=== PATIENT | male | born 1995 | race Caucasian/White ===

== ENCOUNTER 2016-12-12 18:36 | Emergency (ER) | payer BC ==
[~2016-12-12] VITALS: Ht 185.4 cm; Wt 95.0 kg
[~2016-12-12 18:36] MED LIST: ALBU8.5H3; D-ME473S2
[2016-12-12 18:42] VITALS: Ht 185.4 cm; Wt 95.0 kg
[2016-12-12] MEDS ORDERED: IBUPROFEN 800 MG TAB PO ONE (19:00)
--- NOTE | 2016-12-12 19:37 | RADRPT ---
PROCEDURE: XR Left hand CLINICAL INDICATION: Left hand pain status post sports injury. TECHNIQUE: AP, oblique and lateral views of the left hand were obtained. COMPARISON: No prior studies are available for comparison. FINDINGS: Reference marker is directed towards the base of the second finger, without evident underlying radio graphic abnormality. The bones of the hand appear intact, with no evidence of fracture, dislocation, or subluxation. The joint spaces are preserved. Bone mineralization is normal. No significant soft tissue swelling is se en. IMPRESSION: Unremarkable left hand. RPTAT: [facility] Physician Alexander Date Time Electronically viewed and signed by Physician Alexander on 12/12/2016 19:37 RS/
[2016-12-12] MEDS ORDERED: IBUP-1542 PO (19:41)
--- NOTE | 2016-12-12 20:14 | ERD ---
ER Documentation Chief Complaint Date/Time DATE: 12/12/16 TIME: 20:12 Chief Complaint L hand numbness. injured in soccer game. Pt has the symptoms for 1 week HPI Patient is a 21-year-old male with no medical problems who presents with a left hand injury. The patient injured his left hand while playing soccer 10 days ago. He fell onto his left hand and then another player fell on top of it. He now has pain in the lateral portion of his left hand over the thumb and second finger. The patient has numbness over the back of his hand as well. He has had no treatment as of yet. Upon review of old medical records this is the patient's eighth visit to the ER since 2006. He does not know the name of his primary doctor. ROS All systems reviewed and are negative except as per history of present illness. Medications Home Meds Active Scripts Ibuprofen* (Motrin*) 600 Mg Tab, 600 MG PO Q6H Y for PAIN AND OR ELEVATED TEMP, #30 TAB Prov:STEFFEN MA MD 12/12/16 Reported Medications Albuterol Sulfate* (Proair HFA*) 8.5 Gm Hfa.aer.ad 10/29/12 Dextromethorphan Hb-Promethazine Hcl* (Promethazine DM* Syrup) 473 Ml Syrup 10/29/12 Allergies Allergies: Coded Allergies: No Known Drug Allergies (Verified Allergy, Mild, 01/21/15) PMhx/Soc Medical and Surgical Hx: pt denies Medical Hx History of Surgery: No Anesthesia Reaction: No Hx Neurological Disorder: No Hx Respiratory Disorders: No Hx Cardiac Disorders: No Hx Psychiatric Problems: No Hx Miscellaneous Medical Probl: No Hx Alcohol Use: No Hx Substance Use: No Hx Tobacco Use: No Smoking Status: Never smoker FmHx Family History: No diabetes Physical Exam Vitals Vital Signs Date Time Temp Pulse Resp B/P Pulse Ox O2 Delivery O2 Flow Rate FiO2 12/12/16 18:42 99.0 67 20 136/69 97 Physical Exam Const: No acute distress Head: Atraumatic Eyes: Normal Conjunctiva ENT: Normal External Ears, Nose and Mouth. Neck: Full range of motion..~ No meningismus. Resp: Clear to auscultation bilaterally Cardio: Regular rate and rhythm, no murmurs Abd: Soft, non tender, non distended. Normal bowel sounds Skin: No petechiae or rashes Back: No midline or flank tenderness Ext: No deformity or swelling of the left hand noted Neur: Awake and alert, 3 nerve roots of the left upper extremity are intact, patient able to give a thumbs up, okay sign, touch all fingers to thumb, spread fingers, extend and flex fist Psych: Normal Mood and Affect Results 24 hrs Current Medications Medications (Trade) Dose Ordered Sig/Tacho Route PRN Reason Start Time Stop Time Status Last Admin Dose Admin Ibuprofen (Motrin) 800 mg ONCE ONCE PO 12/12/16 19:00 12/12/16 19:01 DC 12/12/16 19:01 Procedures/MDM X-ray of the left hand negative per radiology. Patient is a 21-year-old male presents with a left hand contusion. The patient had an x-ray which shows no fracture or dislocation. At this point all nerve roots appear to be intact. I believe outpatient management is appropriate. I do not believe the patient requires further workup or admission the hospital at this time. The patient will be given ibuprofen in the emergency department and a prescription for ibuprofen as well. The patient can return for any worsening symptoms. Departure Diagnosis: Primary Impression: Contusion, hand Encounter type: initial encounter Laterality: left Qualified Code: S60.222A - Contusion of left hand, initial encounter Condition: Fair Patient Instructions: Contusion, Hand Additional Instructions: Call your primary care doctor TOMORROW for an appointment during the next 1 WEEK.Tell the company secretary that you were referred from this facility.See the doctor sooner or return here if your condition worsens before your appointment time. STEFFEN MA MD Dec 12, 2016 20:14
== END 2016-12-12 19:54 | disposition home or self-care (01) ==
LOC: FTE 18:36
DX: S60.222A Contusion of left hand, initial encounter (principal); W18.39XA Other fall on same level, initial encounter; Y92.9 Unspecified place or not applicable
CPT/HCPCS: 73130; 99283; Z7610